=== PATIENT | female | born 1980 | race Caucasian/White ===

== ENCOUNTER 2018-03-30 18:20 | Emergency (ER) | payer MEDICAID ==
--- NOTE | 2018-03-30 18:40 | Emergency Department Record ---
History of Present Illness - General Chief complaint: Female Urogenital Problem Stated complaint: BROWN VAGINAL DISCHARGE,SINUS CONGESTION,COUGH Time Seen by Provider: 03/30/18 18:29 Source: Patient Mode of Arrival: Ambulatory Limitations: No limitations - History of Present Illness Initial comments: 37 yo female at approximately 9 weeks presents to ED for evaluation of vaginal spotting that began last night. Patient does report 1 previous miscarriage previously, reports mild abdominal cramping symptoms without specific pain. Patient denies undergoing US evaluation during this . Patient also reports brown colored nasal discharge and congestion symptoms for the past 3 days, denies health problems at her baseline. Patient reports "I think I have a sinus infection". MD Complaint: Vaginal bleeding Onset/Timin -: Days(s) Radiation: Non-radiating Severity: Mild Consistency: Intermittent Improves with: None Worsens with: None Patient : No Associated Symptoms: Denies other symptoms - Related Data Sexually active: Yes Home Medications Medication Instructions Recorded Confirmed Last Taken Pnv No.95/Ferrous Fum/Folic AC 1 each PO DAILY 03/30/18 03/30/18 03/30/18 [ Multivitamin Tablet] Allergies Allergy/AdvReac Type Severity Reaction Status Date / Time No Known Drug Allergies Allergy Verified 03/30/18 18:43 Review of Systems Constitutional: Reports: Fever (101 3 days ago). Denies: Chills, Malaise, Night sweats Eyes: Denies: Eye discharge, Eye pain ENT: Reports: Congestion. Denies: Ear pain, Epistaxis Respiratory: Denies: Cough, Dyspnea Cardiovascular: Denies: Chest pain, Dyspnea on exertion Endocrine: Denies: Fatigue, Heat or cold intolerance Gastrointestinal: Denies: Abdominal pain, Nausea, Vomiting Genitourinary: Reports: Abnormal menses. Denies: Incontinence, Retention Musculoskeletal: Denies: Arthralgia, Back pain, Gout, Joint swelling Skin: Denies: Bruising, Change in color Neurological: Denies: Abnormal gait, Confusion, Headache Psychiatric: Denies: Anxiety Hematological/Lymphatic: Denies: Anemia, Blood Clots Physical Exam - General General Appearance: Alert, Oriented x3, Cooperative, No acute distress Limitations: No limitations - Head Head exam: Atraumatic, Normocephalic, Normal inspection Head exam detail: negative: Abrasion, Contusion, Perry's sign, General tenderness, Hematoma, Laceration - Eye Eye exam: Normal appearance. negative: Conjunctival injection, Periorbital swelling, Periorbital tenderness, Scleral icterus - ENT Ear exam: negative: Auricular hematoma, Auricular trauma Nasal Exam: negative: Active bleeding, Discharge, Dried blood Mouth exam: negative: Drooling, Laceration, Muffled voice, Tongue elevation - Neck Neck exam: Normal inspection. negative: Meningismus, Tenderness - Respiratory Respiratory exam: Normal lung sounds bilaterally. negative: Rhonchi, Stridor, Wheezes - Cardiovascular Cardiovascular Exam: Regular rate, Normal rhythm, Normal heart sounds - GI/Abdominal GI/Abdominal exam: Soft. negative: Rebound, Rigid, Tenderness - Rectal Rectal exam: Deferred - exam: Deferred - Extremities Extremities exam: Normal inspection. negative: Calf tenderness, Pedal edema, Tenderness - Back Back exam: Denies: CVA tenderness (R), CVA tenderness (L) - Neurological Neurological exam: Alert, Oriented X3 - Psychiatric Psychiatric exam: Normal affect, Normal mood - Skin Skin exam: Normal color. negative: Abrasion Type of lesion: negative: abrasion Course - Reevaluation(s) Reevaluation #1: 03/30/18 19:28 Labs reviewed, BHCG 9846. Labs are otherwise grossly unremarkable for an acute process. UA pending. Reevaluation #2: 03/30/18 20:14 US Pelvis: Intrauterine gestational sac with yolk sac present ? polse No heart beat detected Approximate age 6 weeks 0 days Corpus luteal cyst left ovary Patient was updated on all results, appears stable for discharge with instructions and Rx for repeat BHCG in 498 hours and close follow-up with her OB. Medical Decision Making - Lab Data Result diagrams: 03/30/18 18:40 03/30/18 18:40 Disposition Disposition: Discharge Clinical Impression: Threatened Disposition: Home, Self-Care Condition: (2) Stable Instructions: Threatened Miscarriage (ED) Additional Instructions: Return to ED if your symptoms worsen or if you have any concerns. Repeat BHCG level in 48 hours Follow-up with your OB in 3-5 days as directed. Forms: Patient Portal Access Time of Disposition: 20:17 Quality - Quality Measures Quality Measures: N/A, (14-50yr) - : US Determination Quality Measure: Measure #254: US Determination of Location US Determination of Location: < Trans-Abdominal or Trans-Vaginal US Performed > [G8806] - : Rhogam Quality Measure: Measure #255: Rhogam for Rh-Negative Women ICD10 Codes Entered: Yes Rhogam for Rh-Negative Women at Risk: < Rh-immunoglobulin (Rhogam) Ordered > [G8809] - Blood Pressure Screening Does Patient Have Any of the Following: No Blood Pressure Classification: Pre-Hypertensive BP Reading Systolic Measurement: 125 Diastolic Measurement: 81 Screening for High Blood Pressure: < Pre-Hypertensive BP, F/U Documented > [ G8950] Pre-Hypertensive Follow-up Interventions: Referral to alternative/primary care provider.
[2018-03-30 18:49] LABS: BASO % 0.2 % (0-6); EOS % 0.5 % (0-6); GRAN % 54.9 % (47-80); HEMATOCRIT 37.4 % (35.0-47.0); HEMOGLOBIN 11.6 gm/dl (11.6-16.0); LYMPH % 36.8 % (16-45); MEAN CELL VOLUME 86.6 fl (81-97); MEAN CORPUSCULAR HEMOGLOBIN 26.9 pg (27-33); MEAN PLATELET VOLUME 9.8 fl (7.4-10.4); MONO % 7.6 % (0-9); PLATELET COUNT 369 K/uL (130-400); RED BLOOD COUNT 4.32 M/uL (3.80-5.40); RED CELL DISTRIBUTION WIDTH 13.6 % (11.5-14.5); WHITE BLOOD COUNT W/O DIFF 4.2 K/uL (4.2-12.2)
[2018-03-30 19:04] LABS: TOTAL B-hCG 9846 mIU/mL
[2018-03-30 19:09] LABS: BLOOD UREA NITROGEN 7 mg/dL (6-20); CREATININE 0.6 mg/dL (0.5-0.9); EST GLOMERULAR FILTRATION RATE > 60 mL/min
[2018-03-30 19:10] LABS: TOTAL PROTEIN 7.5 g/dL (6.6-8.7)
[2018-03-30 19:12] LABS: GLUCOSE,RANDOM 91 mg/dL (74-109)
[2018-03-30 19:15] LABS: ALB/GLOB RATIO 1.1 (1.1-1.8); ALKALINE PHOSPHATASE 96 U/L (35-104); ALT/SGPT 7 U/L (<33); AST/SGOT 10 U/L (10.0-35.0)
--- NOTE | 2018-03-31 15:30 | ULTRASOUND REPORT ---
EXAM: FIRST TRIMESTER ULTRASOUND HISTORY: PAIN. TECHNIQUE: Emergent first trimester ultrasound was performed. Comparison: None. FINDINGS: On transabdominal images, the uterus measures 9.3 x 5.9 x 8.1 cm. There is a visible intrauterine gestational sac. The ovaries and endometrium are less well seen transabdominally, however, a visible intrauterine gestational sac is present. On transvaginal imaging, the right ovary measures 2.4 x 1.4 x 1.8 cm and the left ovary measures 1.9 x 2.6 x 1.7 cm. Doppler and spectral analysis with color flow was utilized. Arterial and venous flow to both ovaries. No solid adnexal mass. There is a 3 x 1.8 x 2.2 cm cyst of the left ovary which could relate to corpus luteal cyst. No free fluid. There is a somewhat irregularly shaped intrauterine gestational sac. A yolk sac is suggested with a questionable pole, however, no detectable heart tones. Current ultrasound age is 6 weeks 0 days. IMPRESSION: 1. THERE IS AN INTRAUTERINE GESTATIONAL SAC WITH YOLK SAC VISIBLE. A QUESTIONABLE POLE, HOWEVER, NO DEFINITIVE DETECTABLE HEART TONES. CORRELATE WITH BETA HCG LEVELS. CLOSE OBSTETRIC FOLLOW-UP RECOMMENDED. CURRENT ULTRASOUND AGE IS 6 WEEKS 0 DAYS. 2. PROBABLE CORPUS LUTEAL CYST OF THE LEFT OVARY. JOB NUMBER: [id number] [facility]
== END 2018-03-30 20:29 | disposition home or self-care (01) ==
LOC: ER 18:20
DX: O20.0 Threatened abortion (principal); Z3A.09 9 weeks gestation of pregnancy
CPT/HCPCS: 76801; 76817; 80053; 84702; 85025; 86901; 99283; 99284

== ENCOUNTER 2018-09-06 18:07 | Emergency (ER) | payer MEDICAID ==
--- NOTE | 2018-09-06 18:28 | Emergency Department Record ---
History of Present Illness - General Chief complaint: Pain Stated complaint: abdominal pain Time Seen by Provider: 09/06/18 18:21 Source: Patient Mode of Arrival: EMS Limitations: No limitations - History of Present Illness Initial comments: 37 yo female presents to ED for evaluation of epigatric abdominal pain and bilateral rib pain that began 20-30 minutes prior to arrival. Patient reports that the pain woke her up from sleep. Patient denies nausea or vomiting symptoms, and denies a history of previous symptoms. Patient denies fevers, chills, urinary symptoms, change in bowel habits, or vaginal discharge symptoms. Patient does report a history of laparoscopy and d/c x 2, reports she has been 11 times and recently took several tests which are positive. MD Complaint: Abdominal Pain Onset/Timin -: Minutes(s) Location: Bilateral History of Same: No Severity scale (1-10): 6 Quality: Aching, Sharp Consistency: Constant Improves with: Nothing Worsens with: Nothing Associated Symptoms: Denies other symptoms - Related Data Home Medications Medication Instructions Recorded Confirmed Last Taken No Home Med [NO HOME MEDS] 09/06/18 09/06/18 Unknown Allergies Allergy/AdvReac Type Severity Reaction Status Date / Time No Known Drug Allergies Allergy Verified 03/30/18 18:43 Travel Screening - Travel/Exposure Within Last 30 Days Have you traveled within the last 30 days?: No Review of Systems Constitutional: Denies: Chills, Fever, Malaise, Night sweats Eyes: Denies: Eye discharge, Eye pain ENT: Denies: Congestion, Ear pain, Epistaxis Respiratory: Denies: Cough, Dyspnea Cardiovascular: Denies: Chest pain, Dyspnea on exertion Endocrine: Denies: Fatigue, Heat or cold intolerance Gastrointestinal: Reports: Abdominal pain. Denies: Nausea, Vomiting Genitourinary: Denies: Incontinence, Retention Musculoskeletal: Denies: Arthralgia, Back pain Skin: Denies: Bruising, Change in color Neurological: Denies: Abnormal gait, Confusion, Headache, Tingling Psychiatric: Denies: Anxiety Hematological/Lymphatic: Denies: Anemia, Blood Clots Past Medical History - SOCIAL HISTORY Smoking Status: Never smoker - RESPIRATORY Hx Respiratory Disorders: No - CARDIOVASCULAR Hx Cardio Disorders: Yes Hx Deep Vein Thrombosis: Yes - NEURO Hx Neuro Disorders: No - GI Hx GI Disorders: No - Hx Genitourinary Disorders: Yes Hx UTI: Yes - ENDOCRINE Hx Endocrine Disorders: No - MUSCULOSKELETAL Hx Musculoskeletal Disorders: No - PSYCH Hx Psych Problems: No - HEMATOLOGY/ONCOLOGY Hx Hematology/Oncology Disorders: No Family Medical History Any Significant Family History?: Yes Hx Anxiety: Mother Hx Diabetes: Father Hx Heart Disease: Father Hx HTN: Father, Mother Hx Resp Disorders: Father Hx Seizures: Father Physical Exam - General General Appearance: Alert, Oriented x3, Cooperative, Moderate distress, Other ( Patient appears anxious on examination, tearful) Limitations: No limitations - Head Head exam: Atraumatic, Normocephalic, Normal inspection Head exam detail: negative: Abrasion, Contusion, Perry's sign, General tenderness, Hematoma, Laceration - Eye Eye exam: Normal appearance. negative: Conjunctival injection, Periorbital swelling, Periorbital tenderness, Scleral icterus - ENT Ear exam: negative: Auricular hematoma, Auricular trauma Nasal Exam: negative: Active bleeding, Discharge, Dried blood, Foreign body Mouth exam: negative: Drooling, Laceration, Muffled voice, Tongue elevation - Neck Neck exam: Normal inspection. negative: Meningismus, Tenderness - Respiratory Respiratory exam: Normal lung sounds bilaterally. negative: Respiratory distress, Rhonchi, Stridor, Wheezes - Cardiovascular Cardiovascular Exam: Regular rate, Normal rhythm, Normal heart sounds - GI/Abdominal GI/Abdominal exam: Soft. negative: Rebound, Rigid, Tenderness - Rectal Rectal exam: Deferred - exam: Deferred - Extremities Extremities exam: Normal inspection. negative: Calf tenderness, Pedal edema, Tenderness - Back Back exam: Denies: CVA tenderness (R), CVA tenderness (L) - Neurological Neurological exam: Alert, Normal gait, Oriented X3 - Psychiatric Psychiatric exam: Anxious - Skin Skin exam: Normal color. negative: Abrasion Type of lesion: negative: abrasion Course Vital Signs 09/06/18 18:08 Temperature 97.7 F Pulse Rate 75 Respiratory 18 Rate Blood Pressure 126/81 Pulse Ox 100 - Reevaluation(s) Reevaluation #1: 09/06/18 19:07 Laboratory studies were reviewed and are grossly unremarkable for an acute process. D-Dimer is negative, test is also negative. Patient declined Ofirmev ordered for pain symptoms. Reevaluation #2: 09/06/18 19:12 Patient was re-evaluated, patient has no TTP over the epigastyric region but reports pain with palpation over the lower ribs bilaterally. The remainder of the the abdominal examination is benign. Reevaluation #3: 09/06/18 19:31 CXR: Negative Patient and her SO were updated on all results, recommended NSAIDs for probable costochondritis. Patient appears stable for discharge a this time. Medical Decision Making - Lab Data Result diagrams: 09/06/18 18:30 10 18:30 Disposition Disposition: Discharge Clinical Impression: Rib pain Disposition: Home, Self-Care Condition: (2) Stable Instructions: Chest Wall Pain (ED) Additional Instructions: Return to ED if your symptoms worsen or if you have any concerns. Ibuprofen as directed. Follow-up with your family doctor in 3-5 days as directed. Forms: Patient Portal Access Time of Disposition: 19:33 Quality - Quality Measures Quality Measures: N/A - Blood Pressure Screening Does Patient Have Any of the Following: No Blood Pressure Classification: Pre-Hypertensive BP Reading Systolic Measurement: 126 Diastolic Measurement: 81 Screening for High Blood Pressure: < Pre-Hypertensive BP, F/U Documented > [ G8950] Pre-Hypertensive Follow-up Interventions: Referral to alternative/primary care provider.
[2018-09-06] MEDS ORDERED: ACETAMINOPHEN 1,000 MG/100 ML BTL IVPB ONE (18:36)
[2018-09-06 18:40] LABS: BASO % 0.6 % (0-6); EOS % 0.8 % (0-6); GRAN % 52.4 % (47-80); HEMOGLOBIN 12.6 gm/dl (11.6-16.0); LYMPH % 40.2 % (16-45); MEAN CELL VOLUME 85.9 fl (81-97); MEAN CORPUSCULAR HEMOGLOBIN 27.8 pg (27-33); MEAN CORPUSCULAR HGB CONC 32.3 g/dl (32-36); MEAN PLATELET VOLUME 10.3 fl (7.4-10.4); PLATELET COUNT 351 K/uL (130-400); RED BLOOD COUNT 4.54 M/uL (3.80-5.40); RED CELL DISTRIBUTION WIDTH 14.6 % (11.5-14.5); URINE APPEARANCE CLEAR; URINE BILIRUBIN NEGATIVE (NEGATIVE); URINE BLOOD MODERATE (NEGATIVE); URINE COLOR YELLOW; URINE GLUCOSE (UA) NEGATIVE (NEGATIVE); URINE KETONE NEGATIVE (NEGATIVE); URINE LEUKOCYTE ESTERASE TRACE (NEGATIVE); URINE NITRITE NEGATIVE (NEGATIVE); URINE PROTEIN NEGATIVE (NEGATIVE); URINE UROBILINOGEN 0.2 E.U./dL (0.20 - 1.00); WHITE BLOOD COUNT W/O DIFF 5.2 K/uL (4.2-12.2)
[2018-09-06 18:43] LABS: HCG,QUALITATIVE URINE NEGATIVE (NEGATIVE)
[2018-09-06 18:48] LABS: URINE EPITHELIAL CELLS 36 - 50 (FEW); URINE RBC 0 - 2 (NONE SEEN); URINE WBC 0 - 2 (0-2/hpf)
[2018-09-06 18:51] LABS: BLOOD UREA NITROGEN 10 mg/dL (6-20); CREATININE 0.6 mg/dL (0.5-0.9); EST GLOMERULAR FILTRATION RATE > 60 mL/min
[2018-09-06 18:52] LABS: TOTAL PROTEIN 6.9 g/dL (6.6-8.7)
[2018-09-06 18:54] LABS: GLUCOSE,RANDOM 92 mg/dL (74-109)
[2018-09-06 18:56] LABS: ALB/GLOB RATIO 1.2 (1.1-1.8); ALBUMIN 3.7 g/dL (4.0-5.0); ALKALINE PHOSPHATASE 78 U/L (35-104); ALT/SGPT 8 U/L (<33); AST/SGOT 10 U/L (10.0-35.0)
[2018-09-06 18:57] LABS: LIPASE 51 U/L (13-60)
== END 2018-09-06 19:44 | disposition home or self-care (01) ==
LOC: ER 18:07
DX: R07.81 Pleurodynia (principal); R10.13 Epigastric pain
CPT/HCPCS: 71046; 80053; 81001; 81025; 83690; 84703; 85025; 85379; 99283; 99284